=== PATIENT | male | born 1945 | race Caucasian/White ===

== ENCOUNTER 2016-07-26 20:21 | Emergency (ER) | payer OTHER ==
--- NOTE | ~2016-07-26 | CR63 ---
[facility] A Service of [facility] RADIOLOGY TEXT RESULTS PATIENT: GUIDO FITZPATRICK LOCATION: [facility] : 49 UNIT #: [id number] AGE: [address]: Brandan Lara MD SEX: M ORDER DR: [id number] [facility] [address] [place], [place] [address] [id number] MR#: [id number] Acc #: [id number] NAME: GUIDO FITZPATRICK : 1945 SEX: M STUDY DATE/TIME: 07/26/2016 22:03 UNIT: [facility] ROOM: STUDY DESCRIPTION: CR Chest 2 View Attending Physician: Brandan Lara M.D. Ordering Physician: Brandan Lara M.D. Primary Care Physician: Cheyenne Martinez A.P.R.N. MEDICAL IMAGING REPORT This report is preliminary unless electronic signature is present EXAM PA and lateral chest HISTORY Weakness and shortness of air for 1 week. FINDINGS 2 views of the chest demonstrate moderately dense focal infiltrate left mid lung probably in the anterior upper lobe. Although nonspecific this could be due to pneumonia and short-term followup chest x-ray is recommended after appropriate assessment and treatment. Mild linear atelectasis or scarring in both bases. No pleural effusions. Dictated by... Michael Vega M.D. THIS IS AN ELECTRONICALLY VERIFIED REPORT Michael Vega M.D. at 07/27/2016 2:42 PM DFL/joanne TD: 07/27/2016 14:24 JOB #: [id number] MEDICAL IMAGING REPORT Page 1 of 1 COPY
--- NOTE | ~2016-07-26 | EKG ---
PATIENT: GUIDO FITZPATRICK UNIT #: [id number] Ventricular Rate: 97 BPM Atrial Rate: 97 BPM P-R Interval: 130 ms QRS Duration: 86 ms Q-T Interval: 366 ms QTC Calculation(Bezet): 464 ms P Perry: 37 degrees Calculated R Perry: 6 degrees Calculated T Perry: 52 degrees Diagnosis Line: Sinus rhythm with frequent Premature ventricular Diagnosis Line: complexes Diagnosis Line: Low voltage QRS Diagnosis Line: Cannot rule out Anterior infarct , age Diagnosis Line: undetermined Diagnosis Line: Abnormal ECG Diagnosis Line: No previous ECGs available Diagnosis Line: Confirmed by BRYON SHANKAR MD ([id number]) on Diagnosis Line: 07/28/2016 8:36:20 AM INTERPRETING MD: VONNIE SCHNEIDER
[~2016-07-26 20:21] MED LIST: ADVIL200 M2 PO; PERCOCET 5/321 UDTAB PO
[2016-07-26 21:18] LABS: POC - CKMB <1.0 ng/mL (0.0-7.9); POC - TROPONIN <0.05 ng/mL (<=0.05)
[2016-07-26 22:53] LABS: BASOPHIL% 0.3 % (0-2.5); HEMOGLOBIN 14.4 gm/dL (13.0-16.0); LYMPHOCYTE% 9.3 % (17.0-45.0); MEAN CORPUSCULAR HEMOGLOBIN 29.8 PG (28-34); MEAN CORPUSCULAR HGB CONC 33.5 g/dL (30-36); MEAN PLATELET VOLUME 9.7 FL (6.5-11.5); MONOCYTE# 0.9 X10e3 (0-1.0); MONOCYTE% 8.5 % (3.0-12.0); NEUTROPHIL# 8.4 X10e3 (1.5-7.1); NEUTROPHIL% 81.9 % (40-75); RED BLOOD COUNT 4.83 X10e (3.90-5.60); RED CELL DISTRIBUTION WIDTH 12.5 % (11.0-15.5); WHITE BLOOD COUNT 10.3 X10e3 (4.0-10.5)
[2016-07-26 22:54] LABS: POC - CKMB <1.0 ng/mL (0.0-7.9); POC - TROPONIN <0.05 ng/mL (<=0.05)
[2016-07-26 23:04] LABS: INR 1.2; PARTIAL THROMBOPLASTIN TIME 29.2 SECONDS (23.5-31.3); PROTHROMBIN TIME (PATIENT) 12.2 SECONDS (9.6-11.5)
[2016-07-26 23:14] LABS: DIFF IND NO; PLATELET COUNT 108 X10e3 (140-420)
[2016-07-26 23:20] LABS: BILIRUBIN, DIRECT 0.2 mg/dL (0.0-0.2); BILIRUBIN,INDIRECT 1.1 mg/dL (0.0-0.9); BILIRUBIN,TOTAL 1.3 mg/dL (0.2-2.0); CALCIUM SERUM 8.6 mg/dL (8.4-10.2); CREATININE SERUM 0.8 mg/dL (0.6-1.4); GLOM FILT RATE Estimated 91.8 mL/min (>60); POTASSIUM 3.5 mmol/L (3.5-5.1); PROTEIN TOTAL SERUM 6.9 g/dL (6.0-8.3)
[2016-07-27 00:41] LABS: URINE SOURCE CLEAN CATCH
[2016-07-27 00:44] LABS: URINE APPEARANCE CLEAR; URINE BLOOD 2+ (NEG); URINE COLOR DK YELLOW; URINE GLUCOSE NEG (NEG); URINE KETONE TRACE (NEG); URINE LEUKOCYTE ESTERASE 2+ (NEG); URINE NITRATE NEG (NEG); URINE PROTEIN 1+ (NEG); URINE SPECIFIC GRAVITY 1.032 (1.003-1.035)
[2016-07-27 00:46] LABS: CULTURE INDICATED? YES; URBCS1 AUWI 50-100 /[HPF] (0-2); URINE BACTERIA AUWI NEG (NEGATIVE); URINE SQUAMOUS EPITHELIAL CELL OCC /[HPF]
[2016-07-27 00:52] LABS: URINE BILIRUBIN NEG (NEG)
== END 2016-07-27 01:22 | disposition home or self-care (01) ==
LOC: CED 20:21
PROVIDERS: Emergency Medicine
DX: I25.10 Atherosclerotic heart disease of native coronary artery without angina pectoris (principal); Z79.899 Other long term (current) drug therapy; I10 Essential (primary) hypertension
CPT/HCPCS: 36415; 71020; 80048; 80076; 81003; 82553; 82947; 83605; 83735; 84484; 85025; 85610; 85730; 87040; 87086; 93005; 94640; 96361; 96365; 96375; 99284; J2930